=== PATIENT | female | born 1960 | race Hispanic/Latino ===

== ENCOUNTER 2023-03-12 21:20 | Emergency (ER) | payer OTHER, MEDICAID ==
[~2023-03-12] VITALS: Ht 167.6 cm; Wt 117.9 kg
[2023-03-12] MEDS ORDERED: HYDROCODONE/ACETAMINOPHEN 5/325 MG TAB PO ONE (21:30)
[2023-03-13] MEDS ORDERED: AMOX1TAB16 PO (00:31)
[2023-03-13] MEDS ORDERED: IBUP-2077 PO (00:32)
[2023-03-13 01:27] VITALS: BP 138/78; PULSE 78; RESP 18; O2SAT 98
== END 2023-03-13 01:32 | disposition home or self-care (01) ==
LOC: EDH 21:20
DX: K02.9 Dental caries, unspecified (principal); M27.69 Other endosseous dental implant failure; I10 Essential (primary) hypertension; E78.00 Pure hypercholesterolemia, unspecified; E11.9 Type 2 diabetes mellitus without complications; Z90.49 Acquired absence of other specified parts of digestive tract